=== PATIENT | male | born 1965 | race Caucasian/White ===

== ENCOUNTER 2017-02-26 13:52 | Emergency (ER) | payer OTHER ==
[~2017-02-26] VITALS: Ht 177.8 cm; Wt 156.9 kg
[~2017-02-26 13:52] MED LIST: NAPROXEN500 MG PO; PERCOCET 325 MG1 TA2 PO
[2017-02-26 14:01] VITALS: BP 137/97
--- NOTE | 2017-02-26 14:59 | ED UPPER/LOWER EXTREMITY COMPL ---
History of Present Illness General Chief Complaint: Lower Extremity Problems Stated Complaint: SIB DR. MCGOWAN FOR DVT R/O Source: patient Exam Limitations: no limitations Vital Signs & Intake/Output Vital Signs & Intake/Output Vital Signs Date Time Temp Pulse Resp B/P B/P Pulse O2 O2 Flow FiO2 Mean Ox Delivery Rate 02/26 1401 97.4 88 20 137/97 96 Room Air Allergies Coded Allergies: NO KNOWN ALLERGIES (02/11/13) Reconcile Medications Doxycycline Hyclate 100 MG TABLET 1 TAB PO BID superficial thromboplebitis Oxycodone HCl/Acetaminophen (Percocet 5-325 MG Tablet) 5 MG-325 MG TABLET 1-2 TAB PO Q6P PRN pain Pantoprazole Sodium 40 MG TABLET. 1 TAB PO QPM ACID REFLUX (Reported) Valsartan 320 MG TABLET 1 TAB PO DAILY HEART (Reported) Triage Note: PT SENT IN BY MD FOR A POSSIBLE BLOOD CLOT TO RIGHT LEG. PT STATES LAST TWO DAYS LEG HAS BEEN RED, PAINFUL, AND SWOLLEN. Triage Nurses Notes Reviewed? yes Onset: Abrupt Duration: day(s): (2), constant, continues in ED Timing: recent history Severity: moderate, severe Pain/Injury Location: Right: Leg. No Modifying Factors: none HPI: 52-year-old male comes into emergency room with pain and swelling to his right lower leg. Patient reports on the medial aspect of his right upper calf he has some redness. Pain radiates up into his leg. Patient has a history of varicose veins. Pain is sharp. Continuous. Nonradiating. Denies any other associated symptoms. (REHANA YIP) Past History Travel History Traveled to [place] past 21 day No Medical History Any Pertinent Medical History? see below for history Cardiovascular: hypertension History of MRSA: Yes History of VRE: No History of CDIFF: No Tetanus Vaccine: 02/10/13 Surgical History Surgical History: non-contributory Psychosocial History Who do you live with Patient/Self What is your primary language Japanese Tobacco Use: Never used Family History Hx Contributory? No (REHANA YIP) Review of Systems Review of Systems Constitutional: Reports: no symptoms. EENTM: Reports: no symptoms. Respiratory: Reports: no symptoms. Cardiovascular: Reports: no symptoms. Gastrointestinal/Abdominal: Reports: no symptoms. Genitourinary: Reports: no symptoms. Musculoskeletal: Reports: see HPI. Skin: Reports: see HPI. Neurological/Psychological: Reports: no symptoms. Hematologic/Endocrine: Reports: no symptoms. Immunological: Reports: no symptoms. All Other Systems: Reviewed and Negative (REHANA YIP) Physical Exam Physical Exam General Appearance: well developed/nourished, mild distress Head: atraumatic Eyes: Bilateral: normal appearance. Ears, Nose, Throat: normal ENT inspection, hearing grossly normal Neck: normal inspection Cardiovascular/Respiratory: no respiratory distress Back: normal inspection Leg Right: some mild erythema to the medial aspect of the right upper calf , some palpable varicose veins, cordlike, tenderness with palpation, superficial Neurologic/Tendon: normal sensation, normal tendon functions, responds to pain, no evidence tendon injury Skin: intact, normal color, warm/dry Lymphatic: no anterior cervical ning (REHANA YIP) Progress Differential Diagnosis: cellulitis, CHF, compartment syndrome, dislocation, DVT, fracture, gout, tendon injury, superficial thrombophlebitis Plan of Care: Orders Procedure Date/time Status US-UNILATERAL VENOUS DOPPLER 02/27 1408 Active Diagnostic Imaging: Viewed by Me: Ultrasound. Discussed w/RAD: Ultrasound. Radiology Impression: SERVICE DATE: 02/26/17 EXAM TYPE: US - US- UNILATERAL VENOUS DOPPLER EXAMINATION: US TRIPLEX LOWER EXTREMITY, RIGHT CLINICAL INFORMATION: Right lower extremity swelling and pain COMPARISON: None TECHNIQUE: Color-flow triplex imaging with spectral analysis and compression Doppler were performed on the lower extremity. FINDINGS: There is no evidence of thrombus within the right common femoral, greater saphenous, femoral, and popliteal veins. There is normal color flow, compression, augmentation, and waveforms. The right calf veins appear patent. In the area of redness and pain in the medial right popliteal fossa, subcutaneous/superficial varicose veins are noted to be thrombosed. IMPRESSION: 1. No evidence of deep vein thrombosis. 2. In the popliteal fossa, at the site of redness and pain there are tortuous subcutaneous varicose veins which are thrombosed, compatible with a superficial thrombophlebitis. DICTATED BY: WILIAM THRASHER MD DATE/TIME DICTATED:02/26/171542 HELP DESK ANALYST:MAY DATE/TIME TRANSCRIBED:02/26/171542 (REHANA YIP) Departure Departure Disposition: HOME OR SELF CARE Condition: Stable Clinical Impression Primary Impression: Superficial thrombophlebitis Referrals: ROSLYN TYLER,MIKAYLA Puckett (PCP/Family) JUAN DAVID RUIZ MD Additional Instructions: Take doxycycline as prescribed. Take 81 mg aspirin tablet daily. Take Percocet as needed for breakthrough pain. Follow-up with vascular surgeon. Return if any concerns worsening symptoms. Please go over all results of today's visit with your primary care doctor. Contact your primary care doctor to let them know you were here in the emergency room. There may be nonspecific findings which may not be related to your visit today here in the emergency room but may require further evaluation and chronic monitoring by your primary care doctor. If you had a laceration today the chance of foreign body always remains. You should follow-up with your primary care doctor for recheck in 3-5 days for a wound check. If you had an x-ray done there is a chance that a fracture could have been missed on initial read and you should follow-up with your primary care doctor for repeat x-rays if symptoms persist. If your blood pressure was elevated here in the emergency room please have rechecked by her primary care doctor within the next 48 hours by your primary care doctor. If you were prescribed a narcotic here in the emergency room or any type of controlled substances you're not allowed to drive while taking this medication or operate any type of heavy machinery. Narcotics can make you feel lightheaded dizziness nausea and can cause constipation. You may need to [employer] a stool softener. Thank you for choosing [facility] emergency room. Please return to the emergency room immediately if you have any other concerns worsening of symptoms. Departure Forms: Customer Survey General Discharge Information Prescriptions: Current Visit Scripts Oxycodone HCl/Acetaminophen (Percocet 5-325 MG Tablet) 1-2 TAB PO Q6P PRN pain #10 TAB Doxycycline Hyclate 1 TAB PO BID #14 TAB Comments 02/26/2017 5:33:51 PM Patient clinically looks well. No evidence of DVT. Superficial thrombosis. Patient treated symptomatically. Follow-up with vascular doctor. Cover with antibiotic in case of secondary infection. 81 mg aspirin tablet daily. Contact your primary care doctor to let them know as well. (REHANA YIP) PA/LIFE INSURANCE UNDERWRITER Co-Sign Statement Statement: ED Attending supervision documentation- [] I saw and evaluated the patient. I have also reviewed all the pertinent lab results and diagnostic results. I agree with the findings and the plan of care as documented in the PA's/LIFE INSURANCE UNDERWRITER's documentation. [x] I have reviewed the ED Record and agree with the PA's/LIFE INSURANCE UNDERWRITER's documentation. [] Additions or exceptions (if any) to the PAs/LIFE INSURANCE UNDERWRITER's note and plan are summarized below: [] (JAISON GRAYSON DO
[2017-02-26] MEDS ORDERED: PANTOPRAZOLE SO40 M1 PO (15:09)
[2017-02-26] MEDS ORDERED: VALSARTAN320 M1 PO (15:09)
--- NOTE | 2017-02-26 15:49 | ULTRASOUND REPORT ---
EXAMINATION: US TRIPLEX LOWER EXTREMITY, RIGHT CLINICAL INFORMATION: Right lower extremity swelling and pain COMPARISON: None TECHNIQUE: Color-flow triplex imaging with spectral analysis and compression Doppler were performed on the lower extremity. FINDINGS: There is no evidence of thrombus within the right common femoral, greater saphenous, femoral, and popliteal veins. There is normal color flow, compression, augmentation, and waveforms. The right calf veins appear patent. In the area of redness and pain in the medial right popliteal fossa, subcutaneous/superficial varicose veins are noted to be thrombosed. IMPRESSION: 1. No evidence of deep vein thrombosis. 2. In the popliteal fossa, at the site of redness and pain there are tortuous subcutaneous varicose veins which are thrombosed, compatible with a superficial thrombophlebitis.
[2017-02-26] MEDS ORDERED: DOXYCYCLINE HY100 M4 PO (16:12)
[2017-02-26] MEDS ORDERED: PERCOCET 5-3251 EACH PO (16:12)
== END 2017-02-26 16:22 ==
LOC: ERH 13:52
DX: I80.01 Phlebitis and thrombophlebitis of superficial vessels of right lower extremity (principal)